=== PATIENT | female | born 1990 | race Caucasian/White ===

== ENCOUNTER 2017-04-13 12:24 | Emergency (ER) | payer BC, OTHER ==
[~2017-04-13] VITALS: Ht 167.6 cm; Wt 96.3 kg
[~2017-04-13 12:24] MED LIST: AMOX500T PO; PRED50TA PO; Z.0.BCPILL PO
[2017-04-13 12:26] VITALS: BP 139/88; PULSE 97; RESP 16; TEMP 97.6; O2SAT 96
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
[2017-04-13] MEDS ORDERED: TETANUS/DIPHTHERIA TOXOID ADULT 0.5 ML VIAL IM ONE (13:00)
[2017-04-13] MEDS ORDERED: TRI-TAB (13:29)
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
== END 2017-04-13 15:41 | disposition home or self-care (01) ==
LOC: PHEFT 12:24
DX: S13.4XXA Sprain of ligaments of cervical spine, initial encounter (principal); Z23 Encounter for immunization; F17.210 Nicotine dependence, cigarettes, uncomplicated; V49.9XXA Car occupant (driver) (passenger) injured in unspecified traffic accident, initial encounter; Y99.8 Other external cause status
CPT/HCPCS: 72050; 72141; 90471; 90714